=== PATIENT | female | born 1935 | race Caucasian/White ===

== ENCOUNTER 2017-05-12 22:44 | Emergency (ER) | payer OTHER ==
[2017-05-12] MEDS ORDERED: Sodium Chloride 0.9% 500 ML IV ONE (23:18)
[2017-05-12 23:32] LABS: % EOSINOPHILS 2.4 % (0.0-5.0); % LYMPHOCYTES 51.1 % (20.0-50.0); % MONOCYTES 7.6 % (2.0-10.0); % NEUTROPHILS 37.9 % (40.0-80.0); BASOPHILE ABSOLUTE 0.1 Th/cumm (0-0.2); EOSINOPHILE ABSOLUTE 0.2 Th/cmm (0.1-0.4); HEMATOCRIT 39.5 % (41.0-60); HEMOGLOBIN 12.9 gm/dL (12-16); LYMPHOCYTE ABSOLUTE 4.6 Th/cmm (1.5-3.0); MEAN CELL VOLUME 87.4 fl (81-100); MEAN CORPUSCULAR HEMOGLOBIN 28.6 pg (27.0-31.0); MEAN CORPUSCULAR HGB CONC 32.8 pg (28.0-36.0); MEAN PLATELET VOLUME 7.3 fl; MONOCYTE ABSOLUTE 0.7 Th/cmm (0.3-1.0); NEUTROPHILE ABSOLUTE 3.4 Th/cmm (1.8-8.0); PLATELET COUNT 351 Th/cmm (150-400); RED BLOOD COUNT 4.52 Mil/cmm (3.80-5.20); RED CELL DISTRIBUTION WIDTH 13.9 % (11.5-20.0)
[2017-05-12 23:51] LABS: BUN - UREA NITROGEN 20 mg/dL (7-25); CALCIUM SERUM 9.5 mg/dL (8.6-10.3); CARBON DIOXIDE 29.1 mEq/L (21.0-31.0); CHLORIDE 102 mEq/L (98-107); CREATININE - SERUM 0.6 mg/dL (0.6-1.2); GLUCOSE 134 mg/dL (70-105); MAGNESIUM 2.2 mg/dL (1.9-2.7); SODIUM SERUM 135 mEq/L (136-145)
[2017-05-13 02:30] LABS: ANION GAP 7.8 (7.0-16.0)
[2017-05-13 02:31] LABS: POTASSIUM SERUM 3.9 mEq/L (3.5-5.1)
--- NOTE | 2017-05-13 09:20 | Diagnostic Imaging Report ---
Exam: Skull series HISTORY: Fracture. Findings: Multiple views of skull demonstrate no evidence of fracture dislocation. IMPRESSION: Normal examination skull.
--- NOTE | 2017-05-13 09:25 | Diagnostic Imaging Report ---
Exam: CT examination of the brain. HISTORY: Subdural hematoma. Total DLP equals 590 CTDI equals reform 0.3 Findings. Multiple contiguous thin section of the brain were obtained from the base of skull to the vertex without the administration of contrast material. No prior studies available for comparison. The study demonstrates prominence of cerebral sulci and ventricles consistent with atrophy with heterogeneous ischemic white matter changes of long-standing etiology. There is no evidence for hemorrhage midline shift or edema. The findings on the preliminary report or mediastinal sulci hypodensity in anterior frontal right lobe is not visualized on the images provided. If clinically indicated follow-up examination might be helpful There is evidence for mucosal thickening in the ethmoid air cells impaction sinuses consistent with sinusitis. Soft tissue swelling left occipital area appreciated. IMPRESSION: Atrophy, periventricular ischemic white matter changes. Left posterior occipital scalp subcutaneous soft tissue swelling Sinusitis
--- NOTE | 2017-05-13 12:20 | ER Physician Documentation ---
DATE OF SERVICE: 05/12/2017 EMERGENCY ROOM EVALUATION AND TREATMENT An 81-year-old female patient, whose date of is 1935. She is a full code patient. Body surface area is 1.69 square meter. BMI is 25.7 kilograms per square meter. The history was obtained on the patient as well as the daughters and I believe the son who came with the patient, roughly 5 or 6 people were around the patient. The patient was having some nausea. She said that she was walking with the walker and just suddenly tripped and fell on her back, injuring the back side of the head giving rise to roughly about a 2 inches x ____ inch size of hematoma, but there is no torn skin, there is no bleeding and there is no ulceration seen over that area. The patient is awake, alert, and oriented. She never lost any consciousness. She never had any dizziness, palpitations, etc. HISTORY OF PRESENT ILLNESS: The patient has had some falls, but not this bad according to the family members. The patient is otherwise doing fine. She has multiple medical problems that would be mentioned below. She has no other significant complaints. She wanted and the family wanted CT of the head to be done, skull x-rays to be done and other things that could be needed could be done. Her admission medications include the following: Norvasc 10 mg, a small white pill, according to them, 1 pill a day, I am describing as they have written it; lisinopril 5 mg 2 pills a day; dicyclomine 20 mg, small blue pill, 1 pill a day; omeprazole 40 mg, which is a PPI, white and ward pill, 1 pill a day and these are all the blood pressure medications according to them. For oatmeal and toast for breakfast, she takes Lexapro, she takes 1 pill by mouth at 12 midnight and 05:00. She takes dicyclomine 20 mg and at 07:30 p.m. she takes gabapentin 300 mg for peripheral neuropathy. She takes Morriston ____ 1 pill every 5 hours. The last gabapentin she took was 07:30 and at 07:45, she took also Morriston and after that she had a fall. She takes fentanyl 25 mcg patch 1 patch every 72 hours or so. The patient's family has kept very detailed description for her illnesses. REVIEW OF SYSTEMS: EYES: She had bilateral cataract surgery done. She had no other eye problem. ENT: No significant complaints. HEART: Reveals no chest pain. No angina pectoris. No myocardial infarction, rheumatic fevers. No valvular heart disease. No pericarditis. No history of any stenting. BONES AND JOINTS: Mild degenerative joint disease, arthritis, may be having some osteoporosis. No apparent new complaints. GASTROINTESTINAL: No history of any diarrhea or constipation, Crohn's disease or any other gut problems. PULMONARY RAYGOZA: No history of pneumonia, TB, pulmonary embolism, COPD, emphysema, or bronchitis. ENDOCRINE RAYGOZA: No diabetes mellitus. No hypo or hyperthyroidism. HEMATOLOGY AND ONCOLOGY RAYGOZA: The patient does not have any cancer. The patient has made many copies of her medications that she is supposed to be taking it. Today, she took 4 Morriston tablets. It is 7.5/325 mg percentages. GENITOURINARY: No burning, frequency, or dysuria. LIVER PATHOLOGY: The patient has none. No history of any liver disease, hepatitis B, etc. PHYSICAL EXAMINATION: GENERAL: The patient appears to be awake, alert, oriented, not in any acute cardiorespiratory distress. Some nausea sensation when I first saw her and then she has a bruise or a small hematoma 2 inches x ____ inches on the back of the head without any broken skin, no evidence of any bleeding seen, no neurological deficit is noted, moves all the extremities, no evidence of any back injury noted. Except for the skull hematoma, no other problems detected. General system otherwise is grossly normal limits, moves all the extremities. Reflexes are normal. Plantars are downgoing. CHEST: Clear. Trachea is central. Fairly good air entry in both lungs. HEART: Reveals normal heart sounds. Soft fourth heart sound. PMI is located in the fifth intercostal space in the midclavicular line. S1 and S2 are normal. Fourth heart sound is present and it is normal. ABDOMEN: Soft, benign and negative, has a surgical scar of cholecystectomy and has an appendix scar also. She has eyeballs surgery done for the cataract. Does not know much about the other details of the illnesses. CLINICAL IMPRESSION: The patient had a fall, just she tripped and fell and hurt the back part of the head, occipital area where she has ____ inch of hematoma. We will get a CT scan of the head done. We will get an x-ray of the skull done to see if there is any fracture. If nothing is detected, then the patient will be discharged to home and we will put some ice patch on the hematoma to prevent any further bleeding. Labs will be ordered and see if anything is massively abnormal. If nothing massively abnormal, then the patient will be sent home to be continued on her usual medications. Her usual medications as I mentioned; Norvasc 10 mg a day, lisinopril 5 mg 2 pills a day, dicyclomine 20 mg 1 pill a day, omeprazole 40 mg once a day and Lexapro 20 mg once a day; dicyclomine at 05:00 and gabapentin at 07:30. She takes Morriston 7.5/325 white pill every 5 hours. So 4 to 5 times at least she takes that along with fentanyl 25 mcg every third day she takes it. CONCLUSION: 1. The patient has a trip and fall. 2. History of hypertension. 3. History of peripheral neuropathy. 4. Pain syndrome for osteoarthritis and other body joints or fibromyalgia may present, do not know. She has some peripheral neuropathy. She has pain medication for quite some time. She is taking Morriston ____ a day and fentanyl, she takes it 25 mcg every third day. The patient has been given some Zofran 4 mg p.r.n. for nausea, vomiting and we will wait for the labs to come back. If the labs are normal, then she will be discharged for home. Most likely, the CT scan and the skull x-ray should come back to be normal. The case was discussed with the patient. The patient has some depression, for which she has taken Lexapro. She has some GERD and hypertension; hypertensive heart disease; peripheral vascular disease; pain-like syndrome that she has it, whether it is fibromyalgia or other thing. No other disease was mentioned to me. She denies any diabetes mellitus or any other significant medical complaint. Most of the time, she takes this medication 5 times a day. Previously, she used to take a lidocaine patch 5% 700 mg, but now she is not taking that. She had some problem with bowel movement and she took the flu shot that should be noted. JOB# [id number]
--- NOTE | 2017-05-14 02:48 | ER Physician Documentation ---
DATE OF SERVICE: 05/12/2017 FINAL DISPOSITION We got some lab results from the patient. Sodium is 135, potassium is 5.6, I believe lisinopril should be not given to the patient, will be informed to the patient; chloride is 102; anion gap is 9.5; glucose is 134; BUN is 20; creatinine 0.6 ____. We got a CT scan of the head and we sincerely thank our radiologist to read this promptly and report it also to me, talk to me, we are grateful. CT head, the official reading, I believe there is a minimal subtle ____ hyperdensity in the anterior right frontal lobe, series 2, image 12; series 4, image 19; series 5, image 27 suggesting minimal acute subarachnoid hemorrhage, no mass effect or midline shift; involution and chronic small vessel ischemic changes; left posterior parietal occipital scalp hematoma is seen; no skull fracture is noted; mucosal thickening in the left ethmoid air cells and left maxillary sinus, clear mastoid air cells were seen and this was read by Dr. Gloria Long. White count is 9000, hemoglobin is 12.9, hematocrit is 39.5, polys are 37.9, and lymphocytes are 51.1. Based on these findings and since we do not have a neurosurgeon available over here, the case was discussed with the family and the family after knowing that the patient had intracranial hemorrhage decided to sign against medical advice. All the instructions were given to the patient. They want to take the patient to another hospital, maybe [facility] or any other hospital of their choice. Natan, the nurse was also present. Natan has been very aggressive in taking care of the patient. He will arrange for the patient to get the CD of the skull x-rays and CT scan and the lab results and the copies and the family will decide to take the patient to the Emergency Room of another major institution like [facility] or [facility] or [facility] whatever they decide. The final diagnosis is history of fall and the patient has developed minimal acute subarachnoid hemorrhage on the CT of the head, but there is no fracture of the skull is seen and this will go with the patient and the patient might go to the Emergency Room and go from there. The other diagnoses are all the same as before. JOB# [id number]
== END 2017-05-13 00:45 | disposition left against medical advice (07) ==
LOC: ER 22:44
DX: S00.83XA Contusion of other part of head, initial encounter (principal); M19.011 Primary osteoarthritis, right shoulder; W01.0XXA Fall on same level from slipping, tripping and stumbling without subsequent striking against object, initial encounter; Y93.89 Activity, other specified; Y92.89 Other specified places as the place of occurrence of the external cause; Y99.8 Other external cause status
CPT/HCPCS: 99285; 96374; 70260; 70450; 36415; 86141; 85025; 83735; 80048; J2405; J7040